=== PATIENT | male | born 1970 | race Caucasian/White ===

== ENCOUNTER 2022-04-21 06:30 | Outpatient (CLI) | payer BC, SELFPAY ==
--- OUTSIDE RECORDS SUMMARY | 2022-04-21 06:33 | XMS_ITS | Encounter Summary ---
:1970 Author Organization [facility] Address [address] [place] [address]. [place] [address] Care Team Providers Name Role Phone [facility], [facility] Primary Care Provider [phone] Reason for Visit Auth/Cert Specialty Diagnoses / Procedures Referred By Contact Refer red To Contact Gastroenterology Diagnoses Abnormal CT of the abdomen Abnormal CT of the abdomen [R93.5] Sh Endoscopy Procedures HC ENDOSCOPIC US EXAM, ESOPH HC UPPR GI ENDOSCOPY W/US FN BX HC UGI ENDOSCOPY W EUC W FNA/BIOPSY HC UGI ENDOSCOPY W EUS ESOPHAGOGASTRODUODENOSCOPY, WITH ENDOSCOPIC US [address] [place] [phone] Phone: Referral ID Status Reason Start Date Expiration Date Visits Requ ested Visits Authorized [id number] 1 1 Encounter Details Date Type Department Care Team Description 01/21/2021 Anesthesia Event M [facility] Ion Ley MD [facility] Endoscopy [facility] [address] ANESTHESIOLOGIS [place] [id number] [phone] [place] [id number] (Wo rk) Anesthesia Record Procedure Summary Procedure Name Responsible Anesthesia Start Anesthesia Stop Anesthesiologist Time Time ESOPHAGOGASTRODUODEN Ion Ley MD 01/21/21 1312 1 1353 OSCOPY, WITH FINE NEEDLE ASPIRATION BIOPSY, WITH ENDOSCOPIC ULTRASOUND GUIDANCE (Esophagus) Events Date Time Event Comment 01/21/2021 1240 1259 COPY CAMERA OPERATOR Ready for Procedure 1312 An Start 1312 An Start Data 1312 AN REASSESS I attest that I have identified and re-evaluated the patient immediately before the induction of anesthesia and I am satisfied that t he anesthetic plan is suitable for the patient's condition and procedure. The f irst vital signs recorded are pre- inducti on. Cheri Robertson APRN COPY CAMERA OPERATOR 1320 AN INCISION 1351 an stop data 1353 An Stop Electronically s igned by Cheri Robertson APRN CRNA on Jan 1:53 PM Name Total lidocaine 2% 100 mg ondansetron 2mg/mL 4 mg propofol (DIPRIVAN) injection 10 mg/mL vial 426.69 mg dexmedetomidine (PRECEDEX) in NS syringe (4 mcg/mL) 16 mcg No abx ordered pre-op 1 each midazolam 1 mg/mL 2 mg fentaNYL 50 mcg/mL 50 mcg LR 700 mL Agents Name NO HELIOX O2 N2O Air Exp Sevoflurane Exp Isoflurane Exp Desflurane Exp N2O Ins Sevoflurane Ins Isoflurane Ins Desflurane O2 Auxiliary Blood No blood administrations on file. Lines, Drains, and Airways Type Details Placement Removal Peripheral IV 01/21/21; 1231; 20 G; BD; 01/21/21 1231 by 01/21 1438 by Anterior, Distal, Right; Rafia Cantu, RN Lilian Reina, Lower forearm; RN Chlorhexidine documented in this encounter Social History Tobacco Use Types Packs/Day Years Used Date Smoking Tobacco: Former Smokeless Tobacco: Never Alcohol Use Standard Drinks/Week Comments Yes 0 (1 standard drink = 0.6 oz pure alcoho l) 6/week Sex Assigned at Date Recorded Not on file COVID-19 Exposure Response Date Recorded In the last month, have you been in contact with No / Unsure 01/21/2021 11:50 AM CDT someone who was confirmed or suspected to have Coronavirus / COVID-19? documented as of this encounter OR Notes Anesthesia Postprocedure Evaluation - Ashwin Poe MD - 01/21/2021 4:17 PM CDT Patient: Richard Alejandre Procedure(s): ESOPHAGOGASTRODUODENOSCOPY, WITH FINE NEEDLE ASPIRATION BIOPSY, WITH ENDOSCOPIC ULTRASOUND GUIDANCE Diagnosis:Abnormal CT of the abdomen [R93.5] Diagnosis Additional Information: No value filed. Anesthesia Type: MAC Note: Postop Pain Control: Uneventful Sign Out: Well controlled pain PONV: No Neuro/Psych: Uneventful Sign Out: Acceptable/Baseline neuro status Airway/Respiratory: Uneventful Sign Out: Acceptable/Baseline resp. status CV/Hemodynamics: Uneventful Sign Out: Acceptable CV status; No obvious hypovolemia; No obvious fluid overload Other NRE: NONE DID A NON-ROUTINE EVENT OCCUR? No Last vitals: Vitals Value Taken Time BP 138/101 01/21/21 1430 Temp Pulse 71 01/21/21 1433 Resp 12 01/21/21 1435 SpO2 96 % 01/21/21 1433 Vitals shown include unvalidated device data. Electronically Signed By: Ashwin Poe MD January 21, 2021 4:17 PM Anesthesia Preprocedure Evaluation - Ion Ley MD - 01/21/2021 12:29 PM CDT Anesthesia Pre-Procedure Evaluation Patient: Richard Alejandre : 1970 Preoperative Diagnosis: Abnormal CT of the abdomen [R93.5] Procedure : Procedure(s): ESOPHAGOGASTRODUODENOSCOPY, WITH ENDOSCOPIC US No past medical history on file. No past surgical history on file. No Known Allergies Social History Tobacco Use ??? Smoking status: Not on file Substance Use Topics ??? Alcohol use: Not on file Wt Readings from Last 1 Encounters: 01/21/21 86.2 kg (190 lb) Anesthesia Evaluation ROS/MED HX ENT/Pulmonary: (+) tobacco use, Past use, (-) sleep apnea Neurologic: Cardiovascular: METS/Exercise Tolerance: Hematologic: Musculoskeletal: GI/Hepatic: Comment: Stomach tumor; (+) GERD, Renal/Genitourinary: Endo: Psychiatric/Substance Use: Infectious Disease: Malignancy: Other: Physical Exam Airway Mallampati: II TM distance: > 3 FB Neck ROM: full Mouth opening: > 3 cm Respiratory Devices and Support Dental no notable dental history Cardiovascular cardiovascular exam normal Pulmonary pulmonary exam normal OUTSIDE LABS: CBC: No results found for: WBC, HGB, HCT, PLT BMP: No results found for: NA, POTASSIUM, CHLORIDE, CO2, BUN, CR, GLC COAGS: No results found for: PTT, INR, FIBR POC: No results found for: BGM, HCG, HCGS HEPATIC: No results found for: ALBUMIN, PROTTOTAL, ALT, AST, GGT, ALKPHOS, BILITOTAL, BILIDIRECT, CARMELINA OTHER: No results found for: PH, LACT, A1C, ROMAIN, PHOS, MAG, LIPASE, AMYLASE, TSH, T4, T3, CRP, SED Anesthesia Plan ASA Status: 2 NPO Status: NPO Appropriate Anesthesia Type: MAC. Consents Anesthesia Plan(s) and associated risks, benefits, and realistic alternatives discussed. Questions answered and patient/car sales representative(s) expressed understanding. - Discussed with: Patient Postoperative Care Comments: ION LEY MD documented in this encounter Miscellaneous Notes Anesthesia Care Transfer Note - Cheri Robertson APRN CRNA - 01/21/2021 1:54 PM CDT Patient: Richard Alejandre Procedure(s): ESOPHAGOGASTRODUODENOSCOPY, WITH FINE NEEDLE ASPIRATION BIOPSY, WITH ENDOSCOPIC ULTRASOUND GUIDANCE Diagnosis: Abnormal CT of the abdomen [R93.5] Diagnosis Additional Information: No value filed. Anesthesia Type: MAC Note: Oropharynx: oral airway in place Level of Consciousness: drowsy Oxygen Supplementation: nasal cannula Level of Supplemental Oxygen (L/min / FiO2): 3 Independent Airway: airway patency satisfactory and stable (with oral airway) Dentition: dentition unchanged Vital Signs Stable: post-procedure vital signs reviewed and stable Report to RN Given: handoff report given Patient transferred to: Phase II Handoff Report: Identifed the Patient, Identified the Reponsible Provider, Reviewed the pertinent medical history, Discussed the surgical course, Reviewed Intra-OP anesthesia mangement and issues during anesthesia, Set expectations for post-procedure period and Allowed opportunity for questions and acknowledgement of understanding Vitals: Vitals Value Taken Time BP Temp Pulse Resp SpO2 Electronically Signed By: Cheri Robertson APRN CRNA January 21, 2021 1:54 PM documented in this encounter Plan of Treatment Not on filedocumented as of this encounter Visit Diagnoses Not on filedocumented in this encounter Administered Medications Inactive Administered Medications - up to 3 most recent administrations Medication Order MAR Action Action Date Dose Rate Site dexmedetomidine (PRECEDEX) in NS Given 01/21/2021 1:45 PM CDT 8 mcg syringe (4 mcg/mL) Intravenous, PRN, Starting on Wed01/21/21 at 1321, Anesthesia Intra-op Given 01/21/2021 1:21 PM CDT 8 mcg fentaNYL (PF) (SUBLIMAZE) injection Given 01/21/2021 1:12 PM CDT 50 mcg Intravenous, PRN, Administer over 3-5 Minutes, Starting on Wed01/21/21 at 1312, Anesthesia Intra-op lactated ringers infusion New Bag 01/21/2021 1:13 PM CDT Intravenous, CONTINUOUS PRN, Anesthesia Intra-op, Starting on Wed01/21/21 at 1313, Until Wed01/21/21 at 1353 lidocaine 2% injection (MDV) Given 01/21/2021 1:19 PM CDT 40 mg Intravenous, PRN, Starting on Wed01/21/21 at 1313, Anesthesia Intra-op Given 01/21/2021 1:13 PM CDT 60 mg midazolam (VERSED) injection Given 01/21/2021 1:12 PM CDT 2 mg Intravenous, Administer over 2 Minutes, PRN, Starting on Wed01/21/21 at 1312, Anesthesia Intra-op No abx ordered pre-op Given 01/21/2021 1:12 PM CDT 1 each PRN, Starting on Wed01/21/21 at 1312, Until Wed01/21/21 at 1353, Anesthesia Intra-op ondansetron (ZOFRAN) injection Given 01/21/2021 1:36 PM CDT 4 mg Intravenous, PRN, Administer over 2-5 Minutes, Starting on Wed01/21/21 at 1336, Anesthesia Intra-op propofol (DIPRIVAN) Rate/Dose Change 01/21/2021 1:27 150 mcg/kg/min 7 7.58 mL/hr injection 10 mg/mL vial PM CDT Intravenous, CONTINUOUS PRN, Starting on Wed01/21/21 at 1315, Anesthesia Intra-op New Bag 01/21/2021 1:15 PM CDT 175 mcg/kg/min 90.51 mL/hr documented in this encounter Care Teams Fire Alarm Operator Relationship Specialty Start Date End Date Clinic, [facility]o Buitrago PCP - General 01/15/[address] [place] [id number] documented as of this encounter
--- OUTSIDE RECORDS SUMMARY | 2022-04-21 06:33 | XMS_ITS | Encounter Summary ---
:1970 Author Organization [facility] Address [address] [place] [address] Care Team Providers Name Role Phone Unavailable Primary Care Provider Unavailable Reason for Visit Reason Onset Date Comments Outpatient COVID-19 Testing 05/19/2021 Encounter Details Date Type Department Care Team Description 05/19/2021 External Outreach Department of [facility] in [place] (Suspected) Exposure [place], [place] [address] To COVID-19 (Primary [address] [place], [place] Dx) [place] [id number] Social History Tobacco Use Types Packs/Day Years Used Date Smoking Tobacco: Never Assessed Sex Assigned at Date Recorded Not on file documented as of this encounter Progress Notes Kimber Perez R.N. - 05/19/2021 3:07 PM CST Encounter created for COVID-19 screening. UTER SYSTEMS ARCHITECT documented in this encounter Miscellaneous Notes Result Encounter Note - Talisha Galloway R.N. - 05/20/2021 10:12 AM COMPUTER SYSTEMS ARCHITECT Your patient has tested positive for SARS-CoV-2, the virus that causes COVID-19. IMPORTANT: Please update the patient's problem list and medication list to ensure an accurate and timely evaluation for COVID-19 treatments, including various medications and Remote Patient Monitoring (RPM). If eligible for COVID-19 treatments or RPM, your patient will be contacted by a designated team of nurses to coordinate the care. The [facility] ([facility]) sends general guidance about COVID-19 to all patients by letter or portal, except when a patient is hospitalized or resides in a halfway. The [facility] will also call all adult patients at highest risk for severe complications of COVID-19 andall who require an nursing services manager. Any patient with a MASS score 1 or greater or a COVID-19 score 1 or greater may be at higher risk ofsevere disease. These patients will follow up directly with primary care. The primary care team willdecide if the patient needs a phone call or a follow up portal message to assess symptom severity, provide individualized guidance on symptom monitoring or symptom management, or to reinforce when to se ek care. [facility] encourages patients to follow up with their PCP with questions, worsening symptoms, or for symptom management. For questions, contact the [facility] ([facility]): Pager: [phone] In basket: P RST/[facility] COVID-19 POSITIVE Covid Care e-consult Components of the Monoclonal Antibody Selection Score (MASS) Compromised Immune System/Transplant = 4 points Chronic Kidney Disease on Dialysis = 4 points Age greater than or equal to 55 and chronic pulmonary disease = 3 points Age greater than or equal to 65 = 2 points Age greater than or equal to = 2 points Diabetes = 2 points Age greater than or equal to 55 AND cardiovascular disease = 2 points Age greater than or equal to 55 and hypertension = 1 point NOTE: At the time of testing, patients are instructed to obtain the result by calling the [employer] result line or by checking their online services account. UTER SYSTEMS ARCHITECT documented in this encounter Plan of Treatment Not on filedocumented as of this encounter Procedures Procedure Name Priority Date/Time Associated Diagnosis Comme nts SARS CORONAVIRUS-2 Routine 05/19/2021 3:53 PM Contact With And Results for this RNA, V COMPUTER SYSTEMS ARCHITECT (Suspected) Exposure procedu re are in To COVID-19 the results section. documented in this encounter Results (ABNORMAL) SARS Coronavirus-2 RNA, V Asymptomatic (05/19/2021 3:53 PM COMPUTER SYSTEMS ARCHITECT) [facility] gist Method Time Signature SARS-CoV-2 Swab, 05/20/2021 MKTO Specimen Nasopharynx 8:52 AM COMPUTER SYSTEMS ARCHITECT Source SARS CoV-2 Detected (A) Undetected 05/20/2021 MKTO RNA, TMA 8:52 AM COMPUTER SYSTEMS ARCHITECT Comment: SARS-CoV-2 RNA present. ----ADDITIONAL INFORMATION---- This molecular amplification test was pe rformed using the Aptima SARS-CoV-2 assay ([employer] on the [employer] tem under emergency use authorization (EUA) by the U.S. Food and Drug Administ ration. Fact sheets for this EUA assay can be fo und at the following links: For Healthcare Providers: https://www.[employer]VI[employer] a.gov/media/273328/download For Patients: https://www.fda.gov/media/ 888122/download Specimen Anatomical Collection Method Collection Time Receive d Time (Source) Location / / Volume Laterality Varies 05/19/2021 3:53 PM 7:16 (Nasopharynx) COMPUTER SYSTEMS ARCHITECT PM COMPUTER SYSTEMS ARCHITECT Hakeem Dennis D.O. LAB MICROBIOLOGY - GENERAL O PI[place]RO[place] Performing Organization Address City/State/ZIP Code Phon e Number [facility]- [address] [place] [address] [place] [address] [address] documented in this encounter Visit Diagnoses Diagnosis Contact With And (Suspected) Exposure To COVID-19 - Primary documented in this encounter Additional Health Concerns Infection Onset Date Last Indicated Resolved Time COVID19 Pending 05/19/2021 05/19/2021 05/20/2021 8:52 AM COMPUTER SYSTEMS ARCHITECT documented as of this encounter
--- OUTSIDE RECORDS SUMMARY | 2022-04-21 06:33 | XMS_ITS | Continuity of Care Document ---
:1970 Author Organization [facility] Address [address] [address] [place] [address] Phone Care Team Providers Name Role Phone Kristen Tamayo MD Unavailable Unavailable Procedures Procedure Date Ugi Endo; W/us Guid Asp/bx Advance Directives Directive Yes / No Effective Date File Name No Information Encounters Encounter Practice Location Reason(s) Diagnoses Date Provider Provide rs Description For Visit Copied on Encounter DEBRA R[facility]AR[facility] stromal tumor MD Frank ISABEL, [place] (GIST) of stomach [address] [address], [facility] , [place], [place], [place] [id number], [address], [place] tel: [place], [place], [id number] , [place]. tel: [phone] DEBRA [place] No Information [facility] [place] Provider: Frank [place], [facility] [address] [place] [address], Huang [place], [address] [facility] , [place], [place], [address] [place] [id number], [address], [place] [address], [place] tel: [place], [place], [place], [place], [phone] , [place]. . tel: tel: [phone] DEBRA Guzman No Information [facility], [address] [address], [place], [place], [place], [place] [id number], [address], [place] tel:[phone] [place], [id number] , [place]. tel: [phone] Family History Family Member Type Diagnosis Age At Onset No Information Immunizations Vaccine Date Status Comments tetanus and diphtheria toxoids, administered Note: MIIC bi-directional adsorbed, preservative free, for interface ; Source: Other adult use (5 Lf of tetanus Von try toxoid and 2 Lf of diphtheria toxoid) tetanus toxoid, reduced administered Note: AR IC bi-directional diphtheria toxoid, and acellular interface ; Source: Other pertussis vaccine, adsorbed Dariana stry Payers Payer name Insurance type Covered constitution party ID Authorization(s ) No Information Social History Type Description Quantity Date Captured Comments Alcohol Use Details Unknown Caffeine Use Details Unknown Tobacco Use Status No Information Smoking Status No Information Sex Male Chief Complaint And Reason For Visit No Information Reason For Referral Reason For Referral No Information Plan Of Treatment Date Type Action Status Referral Ordered: ordered referred to Jonathan Britton MD Gene ral surgery: ANW History Of Present Illness Encounter Date Complaint History Of Present I llness No Information Functional Status Date Functional Assessment No Information Instructions Date Instruction Additional Informati on No Information Assessments Type Assessment Date assessment Gastrointestinal stromal tumor (GIST) of stomach Patient Care Teams Name Effective Dates (start - stop) Status French weinberg No Information
--- OUTSIDE RECORDS SUMMARY | 2022-04-21 06:33 | XMS_ITS | Clinical Summary ---
:1970 Author Organization [facility] [place] [address] Care Team Providers Name Role Phone Nadira Boyd Primary Care Provider [phone] Elena Messer RN Unavailable Jeimy Diehl MD Unavailable Allergies No known active allergies Medications Medication Sig Dispensed Refills Start Date End Date Status [facility] [phone] Plantar 1 Each 0 08/26/2021 Active equipment fasciitis night (DME)Indications: splint, large Chronic heel pain, right, Plantar fasciitis docusate (Colace) 100 Take 1 Capsule 20 Capsule 0 03/20/2022 Active mg (100 mg) by mouth capsuleIndications: two times daily. Femoroacetabular impingement of right hip indomethacin (INDOCIN Take 1 Capsule (75 4 Capsule 0 2 Active LA) 75 mg mg) by mouth once Sustained-Release daily with a meal. capsuleIndications: Start medication Femoroacetabular on post operative impingement of right day 1. hip naproxen Take 1 Tablet (500 52 Tablet 0 03/20/2022 Active (EC-NAPROSYN) 500 mg mg) by mouth two EC tabletIndications: times daily with Femoroacetabular meals. Take for 26 impingement of right days. Start hip medication post operative day 5 once indocin/indomethac in prescription is complete ondansetron (ZOFRAN Place 1 Tablet (4 20 Tablet 0 03/20/2022 Active ODT) 4 mg mg) on the tongue disintegrating every 6 hours if tabletIndications: needed for Femoroacetabular Nausea/Vomiting. impingement of right hip omeprazole (PRILOSEC) Take 1 Capsule (40 4 Capsule 0 2 Active 40 mg Delayed-Release mg) by mouth once capsuleIndications: daily before a Femoroacetabular meal. Start impingement of right medication on post hip operative day 1. oxyCODONE-acetaminoph Take 1-2 Tablets 20 Tablet 0 03/20/2022 Active en (PERCOCET) 5-325 by mouth every 6 mg per hours if needed tabletIndications: for Pain. Max Femoroacetabular acetaminophen impingement of right dose: 4000mg in 24 hip hrs. hydrOXYzine pamoate Take 1 Capsule (25 20 Capsule 0 03/20/2022 Active (VISTARIL) 25 mg mg) by mouth 3 capsuleIndications: times daily if Femoroacetabular needed (muscle impingement of right spasms). hip CrutchIndications: For home use. 2 Each 0 03/20/2022 Active Femoroacetabular impingement of right hip aspirin (ECOTRIN) 81 Take 1 Tablet (81 28 Tablet 0 03/20/2022 mg enteric coated mg) by mouth two 2 tabletIndications: times daily with Femoroacetabular meals for 14 days. 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 Colby Briceno/) 03/31/2022 Travel 03/20/2022 Anesthesia Event Rony Colón MD Laberge, Thomas Patrick, MD 03/20/2022 Surgery Sanjeev Walker Right hip arthr oscopic MD Denys labral repair, subspine decompression, femoroplasty 03/20/2022 Hospital Encounter Sanjeev Walker Femoroace tabular MD Denys impingement of right hip (Primary Dx) 03/19/2022 Travel 03/18/2022 Medical Messaging Kel Vaz Left Elb ow MD Jesus 03/17/2022 Telephone Sanjeev Walker Questions MD Denys 03/16/2022 Nurse/Clinic Staff Testing ( Pre-procedure Only COVID test) 03/16/2022 Travel 03/12/2022 Office Visit Clifton Myers Elbow Pain/pr oblem (GIACOMO Valdovinos MD (new to you) - left elbow pain) 03/12/2022 Telephone Sanjeev Walker MD 03/12/2022 Travel 03/06/2022 Preop Visit Nadira Boyd Pre-Op Exam (03/20/22) MAAME Whitley 03/06/2022 Travel 02/13/2022 Orders Only Sanjeev Walker <No scans attac hed> MD Denys 02/12/2022 Office Visit Sanjeev Walker Hip Pain/proble m MD Denys 02/12/2022 Travel 01/28/2022 Procedure Only Kel Vaz Procedure ( Ultrasound MD Jesus guided injectio n for... 01/28/2022 Travel from Last 3 Months Immunizations Name Administration Dates Next Due Td, Preservative Free (age >= 7 Years) 05/30/2019 Tdap 01/16/2009 Family History Medical History Relation Name Comments Heart attack Father Heart Disease Maternal Grandfather Good Health Mother Arthritis Sister 1 back surgery x 4 Arthritis Sister 2 neck surgery Relation Name Status Comments Father (Age 63) Maternal Grandfather Mother Sister 1 Sister 2 Social History Tobacco Use Types Packs/Day Years Used Date Smoking Tobacco: Former Cigarettes Quit : 2003 Smokeless Tobacco: Never Tobacco Cessation: Counseling Given: Yes Alcohol Use Standard Drinks/Week Comments Yes 6 (1 standard drink = 0.6 oz pure alcoho l) Sex Assigned at Date Recorded Not on file COVID-19 Exposure Response Date Recorded In the last 10 days, have you been in contact with No / Unsu re 03/31/2022 8:59 AM ORDER CLERK someone who was confirmed or suspected to have Coronavirus/COVID-19? Obstetrics History Last Filed Vital Signs Vital Sign Reading Time Taken Comments Blood Pressure 125/72 03/20/2022 3:30 PM ORDER CLERK Pulse 62 03/20/2022 3:30 PM ORDER CLERK Temperature 36.2 ??C (97.2 ??F) 03/20/2022 2:24 PM ORDER CLERK Respiratory Rate 16 03/20/2022 3:30 PM ORDER CLERK Oxygen Saturation 98% 03/20/2022 3:30 PM ORDER CLERK Inhaled Oxygen Concentration - - Weight 88.4 kg (194 lb 14.2 oz) 03/20/2022 8:42 AM ORDER CLERK Height 180.3 cm (5' 11) 03/20/2022 8:42 AM ORDER CLERK Body Mass Index 27.18 03/20/2022 8:42 AM ORDER CLERK Plan of Treatment Upcoming Encounters Date Type Specialty Care Team Description 04/21/2022 Procedure Only Kel Vaz MD [address] [place], [place] [address] (Wo rk) 04/28/2022 Appointment 04/28/2022 Office Visit Jeimy Diehl MD [address] [facility] [address] [place], [place] [id number] (Wo rk) 05/11/2022 Office Visit Sanjeev Walker MD [address] [facility] [address] [place], [place] [address] (Wo rk) Health Maintenance Due Date Last Done Comments COVID-19 vaccine series (#1) 05/15/1969 HIV for age 15-65 11/13/1983 Zoster (shingles) series for age 0711/12/2018 50+ (1 of 2) Depression screening for age 12+ 05/30/2020 05/30/2019, Fecal testing non-DNA 03/07/2021 03/07/2020 (FIT,FOBT,iFOBT) for age 45-75 Influenza for age 50-64 01/08/2022 BMI (ht and wt on same day) for 03/06/2023 03/06/2022, 10/08, age 18+ 09/09/2021, Additional history exists Lipids for age 45-75 09/09/2026 09/09/2021, 05/30/2019, 11/20/2016 Colonoscopy through age 75 07/01/2028 07/01/2021, Tetanus booster 05/30/2029 05/30/2019, 01/16/2009 Tdap Completed 01/16/2009 Hepatitis C screening for age Completed 11/18/2020 18-79 Medical Devices Implanted Type Area Pvc Monitor Device Shelf Model / Identifier Expiration Date Ser ial / Lot Ancr Sut [place] Tt - [id number] Right: [place] 09/16/2024 [id number] / Implanted: Qty: 5 on 03/20/2022 by Sanjeev Walker MD at [facility] Hip Orthopaedics / [id number] Procedures Procedure Name Priority Date/Time Associated Comments Diagnosis XR C-ARM EQUAL OR Routine 03/20/2022 1:01 PM Resu lts for this GREATER 2 HR ORDER CLERK procedure are i n the results section. ENDOTRACHEAL TUBE Routine 03/20/2022 11:20 Result s for this AM ORDER CLERK procedure are i n the results section. ENDOTRACHEAL TUBE Routine 03/20/2022 11:20 Result s for this AM ORDER CLERK procedure are i n the results section. ENDOTRACHEAL TUBE Routine 03/20/2022 11:20 Result s for this AM ORDER CLERK procedure are i n the results section. ENDOTRACHEAL TUBE Routine 03/20/2022 11:20 Result s for this AM ORDER CLERK procedure are i n the results section. ARTHROSCOPIC HIP Tier 4 03/20/2022 10:20 Tear of right AM ORDER CLERK acetabular labrum, initial encounter Case Notes SWING 150 MIN 1030 T/F CASES IN MAIN OR, TREY DIAMONDAN, tricia pivot slingshot, pivot nanopass, pivot nanota ck 1.4 (Company: 5.5mm Carly Bur XL, 4.0mm Aggressive Plus XL, x 2 Shaver handpiec es, CrossFire2 console) Special Needs 5' 11.5 90.4 kg BMI 27.43 SCAN-CARDIAC STRIP 03/20/2022 12:00 Resul ts for this AM ORDER CLERK procedure are i n the results section. COVID 19 Routine 03/16/2022 9:25 AM Encounter for Results for this ORDER CLERK pre-operative procedure are in laboratory testing the resul ts section. COVID 19 COLLECTION Routine 03/16/2022 9:25 AM Encounter for R esults for this ORDER CLERK pre-operative procedure are in laboratory testing the resul ts section. HEMOGLOBIN Routine 03/06/2022 2:16 PM Preop general Results for this CDT physical exam procedure are in Chronic right hip the result s pain section. Articular cartilage disorder of right hip BEDSIDE US STUDY Routine 01/28/2022 11:52 Medial epicondylitis Results for this ARCHIVE AM CDT of left elbow procedure are in the results section. from Last 3 Months Results XR C-ARM EQUAL OR GREATER 2 HR (03/20/2022 1:01 PM ORDER CLERK) Anatomical Region Laterality Modality Computed Radiography Specimen (Source) Anatomical Collection Method Collection Time Re ceived Time Location / / Volume Laterality 03/20/2022 1:01 PM ORDER CLERK Narrative 03/20/2022 1:12 PM ORDER CLERK For Patients: As a result of the Cures Act, medical imaging exams and procedure reports are released immediately into your electronic medical record. You may view this report before your re ferring provider. If you have questions, please contact your health care provider. EXAM: XR C-ARM EQUAL OR GREATER 2 HR LOCATION: [facility] DATE/TIME: 03/20/2022 1:01 PM INDICATION: free text)->intraoperative. Pain COMPARISON: 11/20/2021 TECHNIQUE: Intraoperative fluoroscopy pe rformed during the patient's procedure. FLUOROSCOPIC TIME: 0.5 minutes ?? NUMBER OF IMAGES: 6. FINDINGS: Fluoroscopy over the right fem ur with instrumentation at the acetabular margin. Procedure Note Roland Hall MD - 03/20/2022 For Patients: As a result of the Cures Act, medical imaging exams and procedure reports are released immediately into your electronic medical record. You may view this report before your referring provider. If you have questions, please contact [facility] health care provider. EXAM: XR C-ARM EQUAL OR GREATER 2 HR LOCATION: [facility] DATE/TIME: 03/20/2022 1:01 PM INDICATION: free text)->intraoperative. Pain COMPARISON: 11/20/2021 TECHNIQUE: Intraoperative fluoroscopy pe rformed during the patient's procedure. FLUOROSCOPIC TIME: 0.5 minutes NUMBER OF IMAGES: 6. FINDINGS: Fluoroscopy over the right fem ur with instrumentation at the acetabular margin. Sanjeev Walker MD FLUOROSCOPY HCHG TUBE PR1, HCHG INSTRUMENT DISP PR10, HCHG STYLET PR1, HCHG MOUTHPIECE PR1 (03/20/2022 11:20 AM ORDER CLERK) Narrative Rony Colón MD - 03/20/2022 11:20 AM ORDER CLERK Rony Colón MD ? 03/20/2022 11:22 AM Procedure: ETT Patient location during procedure: OR ETT Properties Mask Ventilation: oral airway Final Technique: video laryngoscopy Type: straight Location: oral Cuffed: yes Tube Size: 8.0 mm Stylet: yes Laryngoscope Blade: Glidescope Blade Size: 3 Cormack-Lehane Grade View: 1 Insertion Attempts: 1 Placement Verification: auscultation, en d tidal CO2 and symmetrical chest wall movement Secured at: 22 Measured From: lips Tooth guard used and removed: yes Bite Block: oral airway Difficulty: 0 (not difficult) Notes: Used glidescope due to patient po sition on bed Electronically signed by Thu Colón MD ? Rony Colón MD ANESTHESIA PX NOTE ORDERABLE S SCAN-CARDIAC STRIP (03/20/2022 12:00 AM ORDER CLERK) Narrative 03/20/2022 12:00 AM ORDER CLERK This result has an attachment that is no t available. Ordered by an unspecified provider. Other Clinical Staff OTHER COVID 19 (03/16/2022 9:25 AM ORDER CLERK) Analysis Performed At Path logist Time Signature COVID 19 Negative Negative 03/17/2022 [facility] 12:19 PM ORDER CLERK LABORATORY[facility] Specimen Anatomical Location / Collection Method Collection Rudy e Received Time (Source) Laterality / Volume Other SPECIMEN FROM Non-Blood / 03/16/2022 9:25 03/17/2022 6:09 NASOPHARYNGEAL Unknown AM ORDER CLERK AM ORDER CLERK STRUCTURE / Unknown Narrative [facility] LABORATORY-CENTRAL LABORAT ORY - 03/17/2022 12:19 PM ORDER CLERK All PCR tests are subject to false negative result due to variability in viral load and collection te chnique. A negative result does not rule out a SARS-CoV-2 infection. Clinical correlation required. This test has been authorized by FDA und er an Emergency Use Authorization (EUA). This test is only authorized for the duration of time the declaration that circumstances exist justifying the authorizati on of the emergency use of in vitro diag nostic tests for detection of SARS-CoV-2 virus and/or diagnosis of COVID-19 infection under section 564(b)(1) of the Act, 21 U.S.C. 360bbb-3(b) (1), unless the authorization is terminated or revoked sooner. Nadira ISABEL MICROBIOLOGY Performing Organization Address City/State/ZIP Code Phon e Number [facility] [address] [place] [address] LABORATORY-CENTRAL 2000 LABORATORY COVID 19 COLLECTION (03/16/2022 9:25 AM ORDER CLERK) [facility] gist Method Time Signature TESTING [facility] 03/17/2022 [facility] LABORATORY Laboratory 6:09 AM ORDER CLERK LABORATORY-CE NTRAL LABORATORY Comment: Specimen submitted to [facility] Laboratory for testing. Specimen Anatomical Location / Collection Method Collection Rudy e Received Time (Source) Laterality / Volume Other SPECIMEN FROM Non-Blood / 03/16/2022 9:25 03/16/2022 9:59 NASOPHARYNGEAL Unknown AM ORDER CLERK AM ORDER CLERK STRUCTURE / Unknown Nadira ISABEL SEND OUTS Performing Organization Address City/State/ZIP Code Phon e Number [facility] [address] [place] [address] LABORATORY-CENTRAL 2000 LABORATORY HEMOGLOBIN (03/06/2022 2:16 PM CDT) P athologist Signature HEMOGLOBIN 14.7 13.5 - 17.5 03/06/2022 [facility] g/dL 2:23 PM CDT [facility] MCV 85 80 - 100 fL 03/06/2022 [facility] 2:23 PM CDT [facility] Specimen Anatomical Collection Method / Collection Time Recei minoo Time (Source) Location / Volume Laterality Blood BLOOD SPECIMEN / Venipuncture / 03/06/2022 2:16 2021 2:18 Unknown Unknown PM CDT PM CDT Nadira ISABEL HEMATOLOGY Performing Organization Address City/State/ZIP Code Phon e Number [facility] [address] [place] [address] BEDSIDE US STUDY ARCHIVE (01/28/2022 11:52 AM CDT) Specimen (Source) Anatomical Location Collection Method / Collectio n Time Received Time / Laterality Volume Narrative Rosaura Hensley - 01/28/2022 11:52 AM CDT The patient was seen for ultrasound guided injection by Dr. Kel Vaz. Ultrasound was not used for diagnostic p urposes, but to guide the needle placement and document the position of the injection. ?? See patient's EPIC encounter for the det ail of the procedure; see TALHA for saved images of the injection. Kel Vaz MD PROCEDURE ORD from Last 3 Months Insurance Payer Benefit Plan / Subscriber ID Effective Phone Address T ype Group Dates WC WORKERS WC WORKERS COMP [id number]-Prese [phone] [address] [id number] [address] [place] [address] WC WORKERS WC WORKERS COMP [id number] 2015-Pre [id number] [place] [address] BLUE CROSS BLUE CROSS OF [id number] 2020-Pres [address] [place] ent [id number] [place] [address] [address] (Home) [address] [address] Richard Alejandre Workers Comp Self 1970 [address] (Home) [address] [address] Richard Alejandre Workers Comp Self 1970 [address] (Home) [address] [facility] Employer ATTN [employer] (Home) [facility]HELFORMERLY [facility]/R [address] [place] [address] Richard Alejandre Retail Self 1970 [address] (Home) [address] [address] Advance Directives Latest Code Status on File Code Status Date Activated Date Inactivated Comments Full Code 03/20/2022 7:54 AM 03/20/2022 6:02 PM Question Answer Comments Code Status Discussion: Reviewed Preferences Code Status History Code Status Date Activated Date Inactivated Comments Full Code 03/06/2021 5:50 AM 03/08/2021 5:16 PM Question Answer Comments Code Status Discussion: Not Discussed Care Teams Trial Lawyer Relationship Specialty Start Date End Date Nadira Boyd PA PCP - General Physician Director Trial 04/27/17 [address] [place] [address] Elena Messer, YOUNG Nurse Navigator Oncology 02/01/[address] [place] [address] Jeimy Diehl MD General Surgery Surgery - General 02/01/[address] [place] [address]
--- OUTSIDE RECORDS SUMMARY | 2022-04-21 06:33 | XMS_ITS | Encounter Summary ---
:1970 Author Organization [place] Address [address] [place] [address] Care Team Providers Name Role Phone [facility] Primary Care Provider [phone] Encounter Details Date Type Department Care Team Description 01/21/2021 Travel Social History Tobacco Use Types Packs/Day Years [...] / COVID-19? documented as of this encounter Plan of Treatment Not on filedocumented as of this encounter Visit Diagnoses Not on filedocumented in this encounter Care Teams Contract Technician Relationship Specialty Start Date End Date [facility] PCP - General 01/15/[address] [place] [address] documented as of this encounter
--- OUTSIDE RECORDS SUMMARY | 2022-04-21 06:33 | XMS_ITS | Clinical Summary ---
:1970 Author Organization [facility] Address [address] [place] [address] Care Team Providers Name Role Phone Unavailable Primary Care Provider Unavailable Source Comments Patient records contain information from all sites at [facility]. For routine questions regarding patient records, call [phone] during business hours, M-F 8:00 AM - 5:00 PM Central Time. Record requests for emergency care only can be directed to [phone] at any time.[facility] Social History Tobacco Use Types Packs/Day Years Used Date Smoking Tobacco: Never Assessed Sex Assigned at Date Recorded Not on file Plan of Treatment Health Maintenance Due Date Last Done Comments CT Colonography 1970 Cologuard 1970 Colonoscopy 1970 Colorectal Cancer Screening 1970 FIT 1970 HIV Screening 1970 Hepatitis B Vaccines (1 of 3 1970 - 3-dose series) Hepatitis C Screening 1970 COVID-19 Vaccine (#1) 05/15/1969 Zoster Vaccines (1 of 2) 2018 Depression Screening (Annual 05/10/2021 PHQ-2) Influenza Vaccine (#1) 2022 Fasting Glucose for Diabetes 03/08/2024 03/08/2021, Screening 03/07/2021, 05/30/2019 Lipid (Cholesterol) Screening 05/30/2024 05/30/2019 DTaP,Tdap,and Td Vaccines (3 05/30/2029 05/30/2019, - Td or Tdap) 01/16/2009 Pneumococcal vaccine (0-64 Aged Out No lo nger eligible based years) on patient's age to complete this to [facility] Insurance Payer Benefit Plan Subscriber ID Effective Phone Address Typ e / Group Dates TITO FRANCIS [id number] 2017-Adelaida [phone] [place] [address] 31 [address] y (Home) [place] [address]
--- OUTSIDE RECORDS SUMMARY | 2022-04-21 06:33 | XMS_ITS | Encounter Summary ---
:1970 Author Organization [facility] Address [address] [place] [address] Care Team Providers Name Role Phone Unavailable Primary Care Provider Unavailable Reason for Visit Reason Comments COVID Inquiry Encounter Details Date Type Department Care Team Description 05/19/2021 Clinical Communication Central Appointment RikyedMARVA jeffries Office in [address] [address] Social History Tobacco Use Types Packs/Day Years Used Date Smoking Tobacco: Never Assessed Sex Assigned at Date Recorded Not on file documented as of this encounter Miscellaneous Notes Telephone Encounter - Teresa Howell Kentrell - 05/19/2021 3:04 PM CST What is the purpose of the call?: Requesting Testing Only Request Testing In the past 14 days are any of the following symptoms new to you and not related to an existing health condition?: No symptoms noted In the past 14 days have you had close contact* with a person who has a LABORATORY CONFIRMED case ofCOVID-19?: Yes exposure noted. [place] patient, instruct to quarantine, testing indicated (End Screening) Plan: Endpoint recommendation: Testing indicated, advised to be swabbed for COVID-19 Only , sent to [facility] located at [address] [place] [address] ([facility]). An appointment is required for testing, please call [phone] Wednesday-Wednesday 7am to 6pm and Wednesday & Wednesday 9am to 4pm to schedule an appointment. Testing hours are 8am - 4:30pm daily. You can also schedule via your Patient Online Services account., Please avoid using public transportation per CDC recommendation. If you do not have personal transportation please self- quarantine until a personal transportation option is available. *Reminder if sending patient for testing in [facility] or [facility], route encounter to the correct testing pool. ITY ASSURANCE PRACTICE MANAGER documented in this encounter Plan of Treatment Not on filedocumented as of this encounter Visit Diagnoses Not on filedocumented in this encounter
--- OUTSIDE RECORDS SUMMARY | 2022-04-21 06:33 | XMS_ITS | Encounter Summary ---
:1970 Author Organization [facility] Address [address] [place] [address]. [place] [address] Care Team Providers Name Role Phone [facility], [facility] Primary Care Provider [phone] Reason for Visit Auth/Cert Specialty Diagnoses / Procedures Referred By Contact Refer red To Contact Gastroenterology Diagnoses Abnormal CT of the abdomen Abnormal CT of the abdomen [R93.5] Sh Endoscopy Procedures HC ENDOSCOPIC US EXAM, ESOPH HC UPPR GI ENDOSCOPY W/US FN BX HC UGI ENDOSCOPY W EUC W FNA/BIOPSY HC UGI ENDOSCOPY W EUS ESOPHAGOGASTRODUODENOSCOPY, WITH ENDOSCOPIC US [address] [place] [phone] Phone: Referral ID Status Reason Start Date Expiration Date Visits Requ ested Visits Authorized [id number] 1 1 Encounter Details Date Type Department Care Team Description 01/21/2021 Hospital Encounter [facility] Marleny Tamayo y [facility] Endoscopy MD Anastasiya [address] OR GASTROENTEROLOGY [place] [id number] [address] [facility] [phone] [place] [id number] (Wo rk) Social History Tobacco Use Types Packs/Day Years [...] / COVID-19? documented as of this encounter Last Filed Vital Signs Vital Sign Reading Time Taken Comments Blood Pressure 138/101 01/21/2021 2:30 PM CDT Pulse 64 01/21/2021 2:30 PM CDT Temperature 36.2 ??C (97.2 ??F) 01/21/2021 12:27 PM CDT Respiratory Rate 18 01/21/2021 2:30 PM CDT Oxygen Saturation 99% 01/21/2021 2:30 PM CDT Inhaled Oxygen Concentration - - Weight 86.2 kg (190 lb) 01/21/2021 12:27 PM CDT Height 180.3 cm (5' 11) 01/21/2021 12:27 PM CDT Body Mass Index 26.5 01/21/2021 12:27 PM CDT documented in this encounter Plan of Treatment Not on filedocumented as of this encounter Procedures Procedure Name Priority Date/Time Associated Comments Diagnosis FINE NEEDLE ASPIRATE STAT 01/21/2021 1:23 PM R esults for this CDT procedure are i n the results section. ESOPHAGOGASTRODUODEN 01/21/2021 1:[address] of the OSCOPY, WITH FINE CDT abdomen NEEDLE ASPIRATION BIOPSY, WITH ENDOSCOPIC ULTRASOUND GUIDANCE UPPER EUS Routine 01/21/2021 1:08 PM Results f or this CDT procedure are i n the results section. documented in this encounter Results (ABNORMAL) Fine Needle Aspirate Other (01/21/2021 1:23 PM CDT) Component Value Ref Test Analysis Performed At [facility] gist Range Method Time Signature Final Specimen A 01/27/2021 RH Electron ically Diagnosis 3:04 PM LABORATORY signed by Interpretation: Consistent with gastrointestinal stromal tumor (GIST) (Please see microscopic description) CDT Nahomi Dougherty MD on 01/27/2021 at 3:04 PM Atypical Adequacy: Satisfactory for evaluation Rapid Onsite FNA Performance: 01/27/2021 [facility] Evaluation Fine needle aspiration was n ot performed by [facility]ology staff. 3:04 PM LABORATORY CDT Aspirate immediate study/adequacy: BJORN Chavez MONNA J, MD, atte st that I immediately examined smears while the procedure was underway and determined or confirmed the adequacy of the specimens. It is of note that the final assessment and report may be performed and signed by a different pathologist. Onsite adequacy/interpretation: A: adequate Gross A. Other, gastric submucosal mass, Fine Needle Aspirate: 01/27/2021 [facility] Description Received are 2 fixed slides, processed for H&E stain, 2 air dried slides, processed for Diff Quik stain, and material in formalin, processed for one hematoxylin stained cell block. 3:04 PM LABOR ATORY CDT Microscopic The specimen shows 01/27/2021 RH Description scant spindle cells 3:04 PM LABORATO RY with no significant CDT atypia. Suspicion for a gastrointestinal stromal tumor is noted. Immunostains are performed and show that the lesional cells are strongly positive for CD117, DOG-1, focally positive for Caldesmon, and negative for desmin and S100. Immunostains confirm a gastrointestinal stromal tumor. Definitive high risk features are not present, however sampling is limited. Intradepartmental consultation is obtained Abnormal Yes (A) No 01/27/2021 RH Result? 3:04 PM LABORATORY CDT Performing The technical 01/27/2021 [facility] Labs component of this 3:04 PM LABORATORY testing was CDT completed at [facility] Specimen (Source) Anatomical Collection Method Collection Time Re ceived Time Location / / Volume Laterality Fine Needle TOPOGRAPHY UNKNOWN 01/21/2021 1:23 2020 7:46 Aspiration / Unknown PM CDT AM CDT Kristen GUARDADO - [place] MICHELLE Performing Organization Address City/State/ZIP Code [place] [address] [facility] [address] (1st floor, no room number) [facility] [address] [place] [address] , [facility] UPPER EUS (01/21/2021 1:08 PM CDT) [facility] gist Method Time Signature Upper EUS [facility] [address] ??[place], [place] ??[address] RESULTS Patient Name: Richard Alejandre ? Procedure Date: 01/21/2021 1:08 PM ? Accou nt Number: [id number] Date of : 1970 ? Admit Type: Out patient Age: 50 ? Room: special procedure room #1 Note Status: Finalized ?Attending MD: Kristen Tamayo , Instrument Name: [id number] EUS Linear Procedure: ?Upper EUS Indications: ?Gastric deformity on endoscopy/Subepithelial tumor ?versus extrinsic comp ression Providers: ?Katheryn Mayo, YOUNG Referring : ? Nadira Boyd Medicines: ?Monitored Anesthesia Care Complications: ?No immediate complications. Procedure: ?Pre-Anesthesia Assessment: ?- Prior to the procedure, a History and Physical ?was performed, and patient medications and ?allergies were reviewed. The patient is competent. ?The risks and benefits of the procedure and the ?sedation options and risks were discussed with the ?patient. All questions were answered and informed ?consent was obtained. Patient identification and ?proposed procedure were verified by the physician ?in the procedure room. Mental Status Examination: ?alert and oriented. Airway Examination: normal ?oropharyngeal airway and neck mobility. Respiratory ?Examination: clear to auscultation. CV Examination: ?normal. Prophylactic Antibiotics: The patient does ?not require prophylactic antibiotics. Prior ?Anticoagulants: The patient has taken no previous ?anticoagulant or antiplatelet agents. ASA Grade ?Assessment: II - A patient with mild systemic ?disease. After reviewing the risks and benefits, ?the patient was deemed in satisfactory condition to ?undergo the procedure. The anesthesia plan was to ?use monitored anesthesia care (MAC). Immediately ?prior to administration of medications, the patient ?was re-assessed for adequacy to receive sedatives. ?The heart rate, respiratory rate, oxygen ?saturations, blood pressure, adequacy of pulmonary ?ventilation, and response to care were monitored ?throughout the procedure. The physical status of ?the patient was re-assessed after the procedure. ?- Immediately prior to administration of ?medications, the patient was re-assessed for ?adequacy to receive s edatives. ?- The heart rate, respiratory rate, oxygen ?saturations, blood pressure, adequacy of pulmonary ?ventilation, and response to care were monitored ?throughout the proced ure. ?- The physical status of the patient was ?re-assessed after the procedure. ?After obtaining informed consent, the endoscope was ?passed under direct vision. Throughout the ?procedure, the patient's blood pressure, pulse, and ?oxygen saturations were monitored continuously. The ?Endoscope was introduced through the mouth, and ?advanced to the second part of duodenum. The upper ?EUS was accomplished with ease. The patient ?tolerated the procedu re well. ? Findings: ? ENDOSCOPIC FINDING: : ? A medium-sized, submucosal, non-circumferential mass with no bleeding ? and no stigmata of recent bleeding was found in the g astric fundus. ? The ampulla and examined duodenum were normal. ? ENDOSONOGRAPHIC FINDING: : ? There was no sign of significant endosonographic abno rmality in the ? common bile duct. The maximum diameter of the duct wa s 2 mm. An ? unremarkable gallbladder, no ston es, no biliary sludge, ducts of normal ? caliber and ducts with regular contour were identifie d. ? An oval intramural (s ubepithelial) lesion was found in the fundus of the ? stomach at 45 cm from the incisors. The lesion was hy poechoic and ? heterogenous. Sonogra phically, the lesion appeared to originate from the ? muscularis propria (Layer 4). The lesion measured 21 mm (in maximum ? thickness). The lesion also measured 14 mm in diamete r. The outer ? endosonographic borders were well defined. Fine needle aspiration for ? cytology was performed. Color Doppler imaging was uti lized prior to ? needle puncture to confirm a lack of significant va scular structures ? within the needle path. Five passes were made with the 25 gauge needle ? using a transgastric approach. A stylet was used. A c ytologist was ? present and performed a preliminary cytologic examina tion. Final ? cytology results are pending. ? There was no sign of significant endosonographic abno rmality in the ? pancreatic head, pancreatic body, pancreatic tail, main pancreatic duct ? and ampulla. The pancreatic duct measured up to 2 mm in diameter. The ? pancreas was well visualized, no pathologic lymphadenopathy, no masses, ? no cysts, no calcifications, the pancreatic duct wa s well visualized ? from ampulla to tail, the pancreatic duct was thin in caliber, the ? pancreatic duct was regular in contour. ? Normal left adrenal gland and celiac axis. No worriso me mediastinal ? nodes. ? Liver was diffusely hyperechoic consistent with hepat ic steatosis ? Impression: ? - 2.1 cm gastric submucosal mass. FNA done and ?pending. Appearance suspicious for GIST tumor ?- Hepatic steatosis Recommendation: ? - Discharge patient to home ( ambulatory). ?- Resume regular diet today. ?- Await cytology resu lts. ?- Referral to surgeon if cytology confirms GIST ?tumor. ? Kristen Tamayo MD Kristen Tamayo, 01/21/2021 1:59:36 PM I was physically present for the entire viewing portion of t he exam. Kristen Tamayo Number of Addenda: 0 Note Initiated On: 01/21/2021 1:08 PM Total Procedure Duration: 0 hours 27 minutes 18 seconds Estimated Blood Loss: ? Estimated blood loss was minimal. Scope In: 1:20:48 PM Scope Out: 1:48:06 PM Specimen (Source) Anatomical Collection Method Collection Time Re ceived Time Location / / Volume Laterality 01/21/2021 1:08 PM CDT Nadira Boyd PROCEDURES Performing Organization Address City/State/ZIP Code Phon e Number RADIOLOGY RESULTS documented in this encounter Visit Diagnoses Not on filedocumented in this encounter Administered Medications Inactive Administered Medications - up to 3 most recent administrations Medication Order MAR Action Action Date Dose Rate Site flumazenil (ROMAZICON) injection 0.2 mg 0.2 mg, Intravenous, EVERY 1 MIN PRN, benzodiazepine r eversal, over sedation, Administer over 1 Minutes, Starting on T ue 01/21/21 at 1404, For 12 hours, Give over 15 seconds. If inadequate response after 45 seconds, may repeat up to a MAX total dose of 1 mg. Continue monitoring until discharge criteria are met for a minimum of 2 hours Irritant. Use with caution in patients on polo odiazepine therapy. lidocaine (LMX4) cream Topical, EVERY 1 HOUR PRN, pain, with VAD insertion, S tarting on 01/21/21 at 1311, Apply at least 30 minutes prior to VAD insertion in divided doses as needed for size of site for insertion. MAX Dose: 2.5 g (?? of 5 g tube) Do NOT give if patient has a history of allergy to any local anesthetic or any adrienne product. Do NOT use both lidocaine intradermal/subcu taneous injection and the lidocaine cream on the same site., Pre-procedure lidocaine 1 % 0.1-1 mL 0.1-1 mL, Other, EVERY 1 HOUR PRN, mild pain with VAD insertion, Starting on Wed01/21/21 at 1311, MAX dose 1 mL subcutane ous OR intradermal along the side of the vein in divided doses as needed for VAD insertion. Do NOT give if patient has a history of allergy to any local anesthet ic or any adrienne product. Do NOT use both lidocaine intradermal/subcutaneous injec tion and the lidocaine cream on the same site., Pre-procedure naloxone (NARCAN) injection 0.2 mg 0.2 mg, Intravenous, EVERY 2 MIN PRN, op ioid reversal, Starting on Wed01/21/21 at 1404, Administer intravenous route when available and notify provider when administered. For unintended sedation or respiratory depression if all of the below criteria are met: ~ respiratory rate LES S than or EQUAL to 8. ~SaO2 less than 92% and or/end-tidal CO2 is greater than 50. ~ the patient is receiving an opioid, has unintended sedations assessed as RASS (-3), and is cur rently not on mechanical ventilation. RASS scale moderate (-3) is movement or eye opening to voice but no eye contact. Patient Monitoring Once the patient has demonstrated a response to the naloxone, continue to monitor respiratory rate, depth, oxygen saturation and end-tidal CO2 (if available) every 15 mi nutes x 2, then every 30 minutes x 2, then every 1 hour x 1 after each naloxone dose. Consider tr ansfer to ICU if patient respiratory parameters have not improved after 4 nalox one doses. naloxone (NARCAN) injection 0.2 mg 0.2 mg, Intramuscular, EVERY 2 MIN PRN, opioid reversal, Starting on Wed01/21/21 at 1404, Administer intramuscular if an int ravenous route is not available and notify provider when administered. For unintend ed sedation or respiratory depression if all of the below criteria are met: ~ respiratory rate LESS than or EQUAL to 8. ~SaO2 less than 92% and or/end-tidal CO2 is greater th an 50. ~ the patient is receiving an opioid, has unintended sedations assessed as RASS (-3), and is currently not on mechanical ventilation. RASS scale moderate (-3) is movement or eye opening to voice but no eye contact. Patient Monitoring Once the patient has demonstrated a response to the naloxone, continue to m onitor respiratory rate, depth, oxygen saturation and end-tidal CO2 (if availab le) every 15 minutes x 2, then every 30 minutes x 2, then every 1 hour x 1 after each naloxone dose. Consider transfer to ICU if patient respiratory parameters have not improved after 4 naloxone doses. naloxone (NARCAN) injection 0.4 mg 0.4 mg, Intravenous, EVERY 2 MIN PRN, op ioid reversal, Starting on Wed01/21/21 at 1404, Administer intravenous route when available and notify provider when administered. For unintended sedation or respiratory depression if all of the below criteria are met: ~ respiratory rate LES S than or EQUAL to 8. ~ SaO2 less than 92% and or/end-tidal CO2 is greater than 50. ~ the patient is receiving an opioid, has unintended sedation assessed as RASS (-4 ) or (-5) and patient is currently not on mechanical ventilation. RASS scale (-4) is deep sedation with no response to voice but movement or eye opening to physical stimulation. R ASS scale (-5) is unarousable. Patient Monitoring Once the patient has demonstrated a response to the naloxone, continue to monitor respiratory rate, depth, oxygen saturation and end-tidal CO2 (if available) every 15 mi nutes x 2, then every 30 minutes x 2, then every 1 hour x 1 after each naloxone dose. Consider tr ansfer to ICU if patient respiratory parameters have not improved after 4 nalox one doses. naloxone (NARCAN) injection 0.4 mg 0.4 mg, Intramuscular, EVERY 2 MIN PRN, opioid reversal, Starting on Wed01/21/21 at 1404, Administer intramuscular if an int ravenous route is not available and notify provider when administered. For unintend ed sedation or respiratory depression if all of the below criteria are met: ~ res piratory rate LESS than or EQUAL to 8. ~ SaO2 less than 92% and or/end-tidal CO2 is greater alexander n 50. ~ the patient is receiving an opioid, has unintended sedation assessed as RASS (-4) or (-5) and patient is currently not on mechanical ventilation. RA SS scale (-4) is deep sedation with no response to voice but movement or eye opening to physical stimulation. RASS scale (-5) is unarousa ble. Patient Monitoring Once the patient has demonstrated a response to the nalox one, continue to monitor respiratory rate, depth, oxygen saturation and end-tidal CO2 (if availab le) every 15 minutes x 2, then every 30 minutes x 2, then every 1 hour x 1 after each naloxone dose. Consider transfer to ICU if patient respiratory parameters have not improved after 4 naloxone doses. ondansetron (ZOFRAN) injection 4 mg 4 mg, Intravenous, EVERY 6 HOURS PRN, nausea, vomiting , Administer over 2-5 Minutes, Starting on Wed01/21/21 at 1404, This is Step 1 of nausea and vomiting management. If nausea not resolved in 15 minutes, go t o Step 2 prochlorperazine (COMPAZINE). Irritant. ondansetron (ZOFRAN-ODT) ODT tab 4 mg 4 mg, Oral, EVERY 6 HOURS PRN, nausea, v omiting, Starting on Wed01/21/21 at 1404, This is Step 1 of nausea and vomiting management. If n ausea not resolved in 15 minutes, go to Step 2 prochlorperazine (COMPAZINE). Do not push through foil backing. Peel back foil and gently remove. Place on to ngue immediately. Administration with liquid unnecessary W ith dry hands, peel back foil backing and gently remove tablet. Do not push oral d isintegrating tablet through foil backing. Administer immediately on tongue and oral disintegrati ng tablet dissolves in seconds, then swallow with saliva. Liquid not required . sodium chloride (PF) 0.9% PF flush 3 mL 3 mL, Intracatheter, EVERY 8 HOURS, First dose on Wed01/21/21 at 1330, to lock peripheral IV dormant line, Pre-procedure sodium chloride (PF) 0.9% PF flush 3 mL 3 mL, Intracatheter, EVERY 1 MIN PRN, li ne flush, other, to ensure patency or to lock dormant line, Starting on Wed01/21/21 at 1311, Pr e-procedure documented in this encounter Active and Recently Administered Medications Times are shown in CDT. Scheduled Medication Order 01/19/2021 01/20/2021 01/21/2021 sodium chloride (PF) 0.9% PF flush 3 mL 1330 (Canceled Entry - Provider: Orders Generic Provider - Comment: Automatically canceled at discontinue of medication order) 3 mL, Intracatheter, EVERY 8 HOURS, Firs t dose on Wed01/21/21 at 1330, to lock peripheral IV dormant line, Pre-procedure PRN Medication Order 01/19/2021 01/20/2021 01/21/2021 flumazenil (ROMAZICON) injection 0.2 mg 0.2 mg, Intravenous, EVERY 1 MIN PRN, be nzodiazepine reversal, over sedation, Administer over 1 Minutes, Starting on Wed01/21/21 at 1404, For 12 hours, Give over 15 seconds. If inadequate response after 45 seconds, may repeat up to a MAX tota l dose of 1 mg. Continue monitoring until discharge criteria are met for a minimum of 2 hours Irritant. Use with caution in patients on benzodiazepine therapy. lidocaine (LMX4) cream Topical, EVERY 1 HOUR PRN, pain, with VA D insertion, Starting on Wed01/21/21 at 1311, Apply at least 30 minutes prior to VAD insertion in divided doses as needed for size of site for insertion. MAX Dose : 2.5 g (?? of 5 g tube) Do NOT give if patient has a history of allergy to any local anesthetic or any adrienne product. Do NOT use both lidocaine intradermal/subcutaneous injection and the lidocaine cream on the same site., Pre-procedure lidocaine 1 % 0.1-1 mL 0.1-1 mL, Other, EVERY 1 HOUR PRN, mild pain with VAD insertion, Starting on Wed01/21/21 at 1311, MAX dose 1 mL subcutaneous OR intradermal along the side of the vein in divided doses as needed for VAD insertion. Do NOT give if patient has a history of allergy to any local anesthetic or any adrienne product. Do NOT use both lidocaine intradermal/subcutaneous injection and the lidocaine cream on the same site., Pre-procedure naloxone (NARCAN) injection 0.2 mg 0.2 mg, Intravenous, EVERY 2 MIN PRN, op ioid reversal, Starting on Wed01/21/21 at 1404, Administer intravenous route when available and notify provider when administered. For unintended sedation or resp iratory depression if all of the below c riteria are met: ~ respiratory rate LESS than or EQUAL to 8. ~SaO2 less than 92% and or/end-tidal CO2 is greater than 50. ~ the patient is receiving an opioid, alamo s unintended sedations assessed as RASS (-3), and is currently not on mechanical ventilation. RASS scale moderate (-3) is movement or eye opening to voice but no eye contact. Patient Monitoring Once the patient has demonstrated a response to the naloxone, continue to monitor respiratory rate, depth, oxygen saturation and end-tidal CO2 (if available) every 15 minutes x 2, then every 30 minutes x 2, the n every 1 hour x 1 after each naloxone d ose. Consider transfer to ICU if patient respiratory parameters have not improved after 4 naloxone doses. naloxone (NARCAN) injection 0.2 mg 0.2 mg, Intramuscular, EVERY 2 MIN PRN, opioid reversal, Starting on Wed01/21/21 at 1404, Administer intramuscular if an intravenous route is not available and notify provider when administered. For uni ntended sedation or respiratory depressi on if all of the below criteria are met: ~ respiratory rate LESS than or EQUAL to 8. ~SaO2 less than 92% and or/end- tidal CO2 is greater than 50. ~ the patient is receiving an opioid, has unintended sed ations assessed as RASS (-3), and is currently not on mechanical ventilation. RASS scale moderate (-3) is movement or eye opening to voice but no eye contact. Pat ient Monitoring Once the patient has dem onstrated a response to the naloxone, continue to monitor respiratory rate, depth, oxygen saturation and end-tidal CO2 (if available) every 15 minutes x 2, then e very 30 minutes x 2, then every 1 hour x 1 after each naloxone dose. Consider transfer to ICU if patient respiratory parameters have not improved after 4 naloxone doses. naloxone (NARCAN) injection 0.4 mg 0.4 mg, Intravenous, EVERY 2 MIN PRN, op ioid reversal, Starting on Wed01/21/21 at 1404, Administer intravenous route when available and notify provider when administered. For unintended sedation or resp iratory depression if all of the below c riteria are met: ~ respiratory rate LESS than or EQUAL to 8. ~ SaO2 less than 92% and or/end-tidal CO2 is greater than 50. ~ the patient is receiving an opioid, h as unintended sedation assessed as RASS (-4) or (-5) and patient is currently not on mechanical ventilation. RASS scale (-4) is deep sedation with no response to voice but movement or eye opening to phy sical stimulation. RASS scale (-5) is un arousable. Patient Monitoring Once the patient has demonstrated a response to the naloxone, continue to monitor respiratory rate, depth, oxygen saturation and end -tidal CO2 (if available) every 15 minut es x 2, then every 30 minutes x 2, then every 1 hour x 1 after each naloxone dose. Consider transfer to ICU if patient respiratory parameters have not improved after 4 naloxone doses. naloxone (NARCAN) injection 0.4 mg 0.4 mg, Intramuscular, EVERY 2 MIN PRN, opioid reversal, Starting on Wed01/21/21 at 1404, Administer intramuscular if an intravenous route is not available and notify provider when administered. For uni ntended sedation or respiratory depressi on if all of the below criteria are met: ~ respiratory rate LESS than or EQUAL to 8. ~ SaO2 less than 92% and or/end- tidal CO2 is greater than 50. ~ the patient i s receiving an opioid, has unintended se dation assessed as RASS (-4) or (-5) and patient is currently not on mechanical ventilation. RASS scale (-4) is deep sedation with no response to voice but moveme nt or eye opening to physical stimulatio n. RASS scale (-5) is unarousable. Patient Monitoring Once the patient has demonstrated a response to the naloxone, continue to monitor respiratory rate, depth, o xygen saturation and end-tidal CO2 (if a vailable) every 15 minutes x 2, then every 30 minutes x 2, then every 1 hour x 1 after each naloxone dose. Consider transfer to ICU if patient respiratory parameters have not improved after 4 naloxone doses. ondansetron (ZOFRAN) injection 4 mg(Linked Group 1) 4 mg, Intravenous, EVERY 6 HOURS PRN, na usea, vomiting, Administer over 2-5 Minutes, Starting on Wed01/21/21 at 1404, This is Step 1 of nausea and vomiting management. If nausea not resolved in 15 minut es, go to Step 2 prochlorperazine (COMPAZINE). Irritant. ondansetron (ZOFRAN-ODT) ODT tab 4 mg(Linked Group 1) 4 mg, Oral, EVERY 6 HOURS PRN, nausea, v omiting, Starting on Wed01/21/21 at 1404, This is Step 1 of nausea and vomiting management. If nausea not resolved in 15 minutes, go to Step 2 prochlorperazine (C OMPAZINE). Do not push through foil back ing. Peel back foil and gently remove. Place on tongue immediately. Administration with liquid unnecessary With dry hands, peel back foil backing and gently remov e tablet. Do not push oral disintegratin g tablet through foil backing. Administer immediately on tongue and oral disintegrating tablet dissolves in seconds, then swallow with saliva. Liquid not required. sodium chloride (PF) 0.9% PF flush 3 mL 3 mL, Intracatheter, EVERY 1 MIN PRN, li ne flush, other, to ensure patency or to lock dormant line, Starting on Wed01/21/21 at 1311, Pre-procedure Linked Groups Order Group 1: ondansetron (ZOFRAN-ODT) ODT tab 4 mgJump to med 4 mg, Oral, EVERY 6 HOURS PRN, nausea, v omiting, Starting on Wed01/21/21 at 1404
This is Step 1 of nausea and vomiting management. If nausea not resolved in 15 minutes, go to Step 2 prochlorperazine (COMPAZINE). Do not push through foil backing. Peel back foil and gently remove. Place on tongue immediately. Administration with liquid unnecessary With dry hands, pee l back foil backing and gently remove ta blet. Do not push oral disintegrating tablet through foil backing. Administer immediately on tongue and oral disintegrating tablet dissolves in seconds, then swallow with saliva. Liquid not required.
Or ondansetron (ZOFRAN) injection 4 mgJump to med 4 mg, Intravenous, EVERY 6 HOURS PRN, na usea, vomiting, Administer over 2-5 Minutes, Starting on Wed01/21/21 at 1404
This is Step 1 of nausea and vomiting management. If naus ea not resolved in 15 minutes, go to Steven p 2 prochlorperazine (COMPAZINE). Irritant.
documented in this encounter Care Teams Road Conductor Relationship Specialty Start Date End Date [facility] P[facility] - General 01/15/[address] [place] [address] documented as of this encounter
--- OUTSIDE RECORDS SUMMARY | 2022-04-21 06:33 | XMS_ITS | Encounter Summary ---
:1970 Author Organization [facility] Address [address] [place] [address]. [place] [address] Care Team Providers Name Role Phone [facility], [facility] Primary Care Provider [phone] Reason for Visit Auth/Cert Specialty Diagnoses / Procedures Referred By Contact Refer red To Contact Gastroenterology Diagnoses Abnormal CT of the abdomen Abnormal CT of the abdomen [R93.5] Endoscopy Procedures HC ENDOSCOPIC US EXAM, ESOPH HC UPPR GI ENDOSCOPY W/US FN BX HC UGI ENDOSCOPY W EUC W FNA/BIOPSY HC UGI ENDOSCOPY W EUS ESOPHAGOGASTRODUODENOSCOPY, WITH ENDOSCOPIC US [address] [place] [phone] Phone: Referral ID Status Reason Start Date Expiration Date Visits Requ ested Visits Authorized [id number] 1 1 Encounter Details Date Type Department Care Team Description 01/21/2021 Surgery [facility] MD Anastasiya OPY, WITH FINE NEEDLE [address] NU GASTROENTEROLOGY ASPIRATION BIOPSY, WITH NU BECK [phone] [address] [facility] ENDOSCOPIC ULTRASOUND [phone] [address] GUIDANCE [phone] (Wo rk) Surgery Details Date/Time Status Location OR Service Patient Class Case Case Trauma Class Type Case? 01/21/21 1:00 Posted GI GI SP Gastroenterology Outpatient PM 01 Panel 1 Procedure [facility]RB Anes Op Region Wound Class Commen ts ESOPHAGOGASTRODUODENOSCOPY, WITH N/A MAC Esophagus II- Clean Contaminated 25C FINE NEEDLE ASPIRATION BIOPSY, WITH ENDOSCOPIC ULTRASOUND GUIDANCE Surgeon Surgeon Role Service Panel Kristen Tamayo MD Primary Gastroenterology 1 documented in this encounter Social History Tobacco [...] Sign Reading Time Taken Comments Blood Pressure 136/90 01/21/2021 12:27 PM CDT Pulse 64 01/21/2021 12:27 PM CDT Temperature 36.2 ??C (97.2 ??F) 01/21/2021 12:27 PM CDT Respiratory Rate 18 01/21/2021 12:27 PM CDT Oxygen Saturation 99% 01/21/2021 12:27 PM CDT Inhaled Oxygen Concentration - - [...] Component Value Ref Test Analysis Performed At [facility] Range Method Time Signature Final Specimen A 01/27/2021 [facility] Electron ically Diagnosis 3:04 PM LABORATORY signed by Interpretation: Consistent with gastrointestinal stromal tumor (GIST) (Please see microscopic description) CDT Nahomi Dougherty MD on 01/27/2021 at 3:04 PM Atypical Adequacy: Satisfactory for evaluation Rapid Onsite FNA Performance: 01/27/2021 [facility] Evaluation Fine needle aspiration was n ot performed by [facility] staff. 3:04 PM LABORATORY CDT Aspirate [...] gastric submucosal mass, Fine Needle Aspirate: 01/27/2021 [facility] Description Received are 2 fixed slides, processed [...] PM LABORATORY CDT Performing The technical 01/27/2021 [facility] Labs component of this 3:04 PM LABORATORY testing was CDT completed at [facility] Specimen (Source) Anatomical Collection Method Collection Time Re ceived Time Location / / Volume Laterality Fine Needle TOPOGRAPHY UNKNOWN 01/21/2021 1:23 2020 7:46 Aspiration / Unknown PM CDT AM CDT Kristen GUARDADO - [place] MICHELLE Performing Organization Address City/State/ZIP Code Phon [place] [address] Care Lab [address] [facility] (1st floor, no room number) [facility] [address] [address] , [facility] UPPER EUS (01/21/2021 1:08 PM CDT) [facility] Method Time Signature Upper EUS [facility] [address] ??[place] ??[id number] RESULTS Patient Name: Richard Alejandre ? Procedure Date: 01/21/2021 1:08 PM ? Accou nt Number: [id number] Date of : 1970 ? Admit Type: Out patient Age: 50 ? Room: special procedure room #1 Note Status: Finalized ?Attending MD: Kristen Tamayo , Instrument Name: 430 [id number] EUS Linear Procedure: ?Upper EUS Indications: ?Gastric deformity on endoscopy/Subepithelial tumor ?versus extrinsic comp ression Providers: ?Kristen Tamayo, Katheryn Hollingsworth, YOUNG Referring MD: ? Nadira Boyd Medicines: ?Monitored Anesthesia Care [...] RESULTS documented in this encounter Visit Diagnoses Diagnosis Abnormal CT of the abdomen Nonspecific (abnormal) findings on radio logical and other examination of abdominal area, including retroperitoneum documented in this encounter Administered Medications Inactive Administered Medications - up to 3 most recent administrations Medication Order MAR Action Action Date Dose Rate Site flumazenil (ROMAZICON) injection 0.2 mg 0.2 mg, Intravenous, EVERY 1 MIN PRN, benzodiazepine r eversal, over sedation, Administer over 1 Minutes, Starting on T 01/21/21 at 1404, For 12 hours, Give [...] pain, with VAD insertion, S tarting on Wed01/21/21 at 1311, Apply at least [...] Irritant.
documented in this encounter Care Teams Shower Room Attendant Relationship Specialty Start Date End Date [facility], [facility] PCP - General 01/15/21 [address] [place] [address] documented as of this encounter
--- OUTSIDE RECORDS SUMMARY | 2022-04-21 06:33 | XMS_ITS | Clinical Summary ---
:1970 Author Organization [facility] Address [address] [place] [address] Care Team Providers Name Role Phone [facility], [facility] [place] Primary Care Provider [phone] Allergies No known active allergies Medications No known medications Family History Medical History Relation Comments Coronary Artery Disease Father Diabetes Father Relation Status Comments Father Mother Alive Social History Tobacco Use Types Packs/Day Years Used Date Smoking Tobacco: Former Smokeless Tobacco: Never Alcohol Use Standard Drinks/Week Comments Yes 0 (1 standard drink = 0.6 oz pure alcoho l) 6/week Sex Assigned at Date Recorded Not on file Last Filed Vital Signs Vital Sign Reading [...] Mass Index 26.5 01/21/2021 12:27 PM CDT Plan of Treatment Health Maintenance Due Date Last Done Comments ADVANCE CARE PLANNING 1970 ANNUAL REVIEW OF HM ORDERS 1968 CT COLONOGRAPHY 1968 FIT-DNA (Cologuard) 1970 FIT 1970 FLEX SIG 1970 HEPATITIS B IMMUNIZATION (1 1968 of 3 - 3-dose series) YEARLY PREVENTIVE VISIT 1970 COVID-19 Vaccine (#1) 05/15/1969 COLONOSCOPY 1978 COLORECTAL CANCER SCREENING 1978 HIV SCREENING 11/13/1983 HEPATITIS C SCREENING 1986 LIPID 11/13/2003 LUNG CANCER SCREENING 2018 ZOSTER IMMUNIZATION (1 of 2) 2018 PHQ-2 (once per calendar 05/10/2021 year) INFLUENZA VACCINE (#1) 2022 DTAP/TDAP/TD IMMUNIZATION (3 05/30/2029 05/30/2019, - Td or Tdap) 01/16/2009 IPV IMMUNIZATION Aged Out No longer eligi ble based on patient's age to complete this to pic MENINGITIS IMMUNIZATION Aged Out No longe r eligible based on patient's age to complete this to pic Pneumococcal Vaccine: Aged Out No longer eligible based Pediatrics (0 to 5 Years) and on patient's age to At-Risk Patients (6 to 64 comple te this topic Years) Insurance Payer Benefit Plan / Subscriber ID Effective Dates Phone Addre ss Type Group [place] [id number] 2017-[facility] [phone] [address] [address] [address] [place] [address] [phone] michel (Home) [address] [address] Care Teams Strong Nitric Operator Relationship Specialty Start Date End Date Clinic, [facility] PCP - General 01/15/21 [address] [place], [place] [id number]
--- OUTSIDE RECORDS SUMMARY | 2022-04-21 06:33 | XMS_ITS | Encounter Summary ---
:1970 Author Organization [facility] Address [address] [place] [address] Care Team Providers Name Role Phone Unavailable Primary Care Provider Unavailable Encounter Details Date Type Department Care Team Description 05/19/2021 Admin Visit Department of Family Medicine, [address] [address] [facility] [phone] Social History Tobacco Use Types Packs/Day Years Used Date Smoking Tobacco: Never Assessed Sex Assigned at Date Recorded Not on file documented as of this encounter Plan of Treatment Not on filedocumented as of this encounter Visit Diagnoses Not on filedocumented in this encounter Additional Health Concerns Infection Onset Date Last Indicated Resolved Time COVID19 Pending 05/19/2021 05/19/2021 05/20/2021 8:52 AM CODING CONSULTANT documented as of this encounter
--- OUTSIDE RECORDS SUMMARY | 2022-04-21 06:34 | XMS_ITS | Encounter Summary ---
:1970 Author Organization [facility] Address [facility] [place] [address] Care Team Providers Name Role Phone Unavailable Primary Care Provider Unavailable Encounter Details Date Type Department Care Team Description 01/14/2021 Orders Only [facility] Kristen Tamayo for [place] Endoscopy MD Anastasiya screening for other [address] [facility] [place] [address] [address] [facility] [phone] [place] [address] (Wo rk) Social History Tobacco Use Types Packs/Day Years Used Date Smoking Tobacco: Never Assessed Sex Assigned at Date Recorded Not on file documented as of this encounter Plan of Treatment Not on filedocumented as of this encounter Results Asymptomatic COVID-19 Virus (Coronavirus) by PCR Nose (01/17/2021 1:26 PM CDT) Analysis Performed At Patho logist Time Signature SARS CoV2 PCR Negative Negative 01/18/2021 [facility] 10:05 PM CDT LABORATORY Comment: NEGATIVE: SARS-CoV-2 (COVID-19) RNA not detected, presumed negative. Specimen Anatomical Collection Method Collection Time Receive d Time (Source) Location / / Volume Laterality Swab NASAL STRUCTURE / Non-blood 01/17/2021 1:26 PM 01/08 1:27 Unknown Collection / CDT PM CDT Unknown Narrative [facility] LAB[facility] - 01/18/2021 10:05 PM CDT Testing was performed using the Aptima SARS-CoV-2 Assay on the K[employer] Instrument System. Additional in formation about this Emergency Use Authorization (EUA) assay can be found via the Lab Guide. This test should be ordered for t he detection of SARS-CoV-2 in individuals who meet SARS-CoV-2 clinical and/or epidemiological criteria. Test performance is unknown in asymptomatic patients. This test is for in vitro diagnostic use unde r the FDA EUA for laboratories certified under CLIA to per form high complexity testing. This test has not been FDA cleared or ap proved. A negative result does not rule out the presence of PCR in hibitors in the specimen or target RNA in concentration below the li brandi of detection for the assay. The possibility of a false negati ve should be considered if the patient's recent exposure or clinica l presentation suggests COVID-19. This test was validated by the [facility]. This lab oratory is certified under the Clinical Laboratory Improvement Amen dments of 1987 (CLIA-88) as qualified to perform high complexity lab oratory testing. Kristen Tamayo MD LAB - MICRO GENERAL ORDERAB LES Performing Organization Address City/State/ZIP Code Phon e Number [facility] LABORATORY [facility] [place] [address] Diag. Lab [address] [facility], Room [address]297 [facility] Infectious [place], [place] [phone] Diseases Diagnostic [id number], [facility] Lab (IDDL) [address] [facility], Room D297 documented in this encounter Visit Diagnoses Diagnosis Encounter for screening for other viral diseases documented in this encounter
--- OUTSIDE RECORDS SUMMARY | 2022-04-21 06:34 | XMS_ITS | Encounter Summary ---
:1970 Author Organization [address] [address] Care Team Providers Name Role Phone [facility]acho, [facility] [place] Primary Care Provider [phone] Encounter Details Date Type Department Care Team Description 01/17/2021 [facility] beckyer for screening for Hospital other viral diseases [address] [place] [address] Social History Tobacco Use Types Packs/Day Years [...] Name Priority Date/Time Associated Diagnosis Comme nts COVID-19 VIRUS Routine 01/17/2021 1:26 PM Encounter for Result s for this (CORONAVIRUS) BY CDT screening for other proc edure are in PCR viral diseases the results section. documented in this encounter Results Asymptomatic COVID-19 Virus (Coronavirus) [...] using the Aptima SARS-CoV-2 Assay on the Gist Instrument System. Additional in formation about this [...] COVID-19. This test was validated by the [facility] Infectious Diseases Diagnostic Laboratory. This lab oratory is certified under the Clinical Laboratory Improvement Amen dments of 1987 (CLIA-88) as qualified to perform high complexity lab oratory testing. Kristen Tamayo MD LAB - MICRO GENERAL ORDERAB LES Performing Organization Address City/State/ZIP Code Phon e Number [facility]ORY [facility] [place] [place] [address] Diag. Lab [address] [facility], Room [address]297 [facility] LABORATORY [facility] Infectious [place], [place] [phone] Diseases Diagnostic [phone] Lab (IDDL) [address] [facility], Room D297 documented in this encounter Visit Diagnoses Diagnosis Encounter for screening for other viral diseases documented in this encounter Care Teams Software Configuration Specialist Relationship Specialty Start Date End Date Aldo Flor PCP - General 01/15/[address] [place] [address] documented as of this encounter
[2022-04-21 06:59] VITALS: TEMP 36.1
[2022-04-21 07:01] VITALS: BP 113/81; PULSE 80; RESP 18; TEMP 36.1; O2SAT 98
== END 2022-04-21 08:03 ==
LOC: US 06:31
PROVIDERS: PCP Physician Assistant Medical; Visit Provider Family Medicine
DX: M77.02 Medial epicondylitis, left elbow (principal)
CPT/HCPCS: 24357; 76942

== ENCOUNTER 2022-12-31 14:30 | Outpatient (RCR) | payer BC, SELFPAY | END 2023-04-02 14:32 | disposition home or self-care (01) | PROVIDERS: PCP Physician Assistant Medical; Visit Provider Podiatrist | DX: M79.671 Pain in right foot (principal); G89.29 Other chronic pain; M65.28 Calcific tendinitis, other site; Z51.89 Encounter for other specified aftercare | CPT/HCPCS: 97033; 97110; 97162 ==

== ENCOUNTER 2023-03-29 11:57 | Day surgery (SDC) | payer BC, SELFPAY ==
[2023-03-29] VITALS (13 sets, daily range): BP systolic 132–164; BP diastolic 83–112; PULSE 54–99; RESP 15–18; TEMP 36–36.6; O2SAT 95–99; BMI 29.4
--- OUTSIDE RECORDS SUMMARY | 2023-03-29 12:01 | XMS_ITS | Continuity of Care Document ---
Author Name Unknown Organization [facility] Address [address] [place] [address] Phone Care Team Providers Care Convenience Store Manager Name Role Phone Rudy Flowers Unavailable Unavaila ble Allergies, Adverse Reactions, Alerts Substance Reaction Status Criticality No Known Allergies Active No Inform ation Medications Medication Instructions Dosage Effective Dates (start - stop) Status Comments No Drug Therapy Prescribed Procedures Procedure Date Office/Outpatient Visit,[place], [facility] 2016 Office/Outpatient Visit,[facility], [facility] 2011 Advance Directives Directive Yes / No Effective Date File Name No Information Encounters Encounter Description Practice Location Reason(s) For Visit Diagnoses Date Provider Providers Copied on Encounter [facility], [address], [place], [place], [id number], tel:[phone] No Information Khoa Grant. [address], [place], [facility], [place]. tel:[phone] Office/Outpa tient Visit,[facility], [address], [place], [place], [id number], tel:[phone] [facility] - [place] Spinal stenosis, cervical regionOther spondylosis, cervical regionRadicu lopathy, cervical region Khoa Grant. [facility], [address] [place] [address] [address], [place], [facility], . tel:[phone] Referring Provider: Nadira Boyd, [facility] [address], [place], [address]. tel:[phone] Office/Outpa tient Visit,Est, Mod [facility], [address] [address], [place], [address], [place] tel:[phone] [facility] - [place] No Information 2 Tacho Castaneda. [facility], [address], [address], [place], [place], [id number], [place]. tel:[phone] Family History Family Member Type Diagnosis Age At Onset No Information Payers Payer name Insurance type Covered libertarian ID Authorrenaldo katz(s) BCBS [id number] CCS/TPA BL [id number] Social History Type Description Quantity Date Captured Comments Sex Male Smoking Status No Information Chief Complaint And Reason For Visit No Information Reason For Referral Reason For Referral No Information History Of Present Illness Encounter Date Complaint History Of Prese nt Illness No Information Functional Status Date Functional Assessmen t No Information Medications Administered Medication Instructions Dosage Effective Dates (start - stop) Status Comments No Drug Therapy Prescribed Instructions Date Instruction Additional Infor mation No Information Assessments Type Assessment Date No Information Patient Care Teams Name Effective Dates (start - stop) Status Members No Information
--- NOTE | 2023-03-29 12:15 | CRLHL7_ITS ---
For Patients: As a result of the Cures Act, medical imaging exams and procedure reports are released immediately into your electronic medical record. You may view this report before your referring provider. If you have questions, please contact your health care provider. INDICATION: Fluoroscopy for ostectomy of calcaneus TECHNIQUE: 10 seconds of fluoroscopy was provided with no radiologist in attendance. 3 views right COMPARISON: None FINDINGS: Bone: No side markers are present on submitted images. Fluoroscopic images demonstrate placement of 2 screw tracks into the posterior calcaneus. Dictated by Rogerio Stallings MD @ 03/30/2023 2:00:14 PM Dictated by: Rogerio Stallings MD @ 03/30/2023 14:00:20 (Electronically Signed)
[2023-03-29] MEDS: LACTATED RINGERS 1000 ML 1,000 ML 100 ML IV (12:25)
[2023-03-29] MEDS: SODIUM CHLORIDE 0.9 % (FLUSH) 10 ML SYRINGE IVF (12:25)
[2023-03-29] MEDS: MIDAZOLAM HCL 1 MG/ML inj IVP (12:35)
[2023-03-29] MEDS: fentaNYL 100 MCG/2 ML inj IVP (12:35)
--- NOTE | 2023-03-29 12:49 | SUR.PREOP ---
TIME?OUT:?1235 PT/Светлана CANCINO RN/Urszula PALACIOS MDA?VERIFICATION?OF?SURGICAL?SITE,?PROCEDURE,?AND?CONSENT OBTAINED?PRIOR?TO?INVASIVE?PROCEDURE.
--- NOTE | 2023-03-29 13:26 | SUR.OPER ---
PATIENT QUESTIONS ANSWERED SATISFACTORILY PREOPERATIVELY.? PATIENT BROUGHT TO OR #1 PER CART.? Patient positioned prone on OR #1 bed after being intubated supine on the cart.? The perioperative?team supported arms bilaterally on arm boards.? Final approval of positioning by surgeon
--- NOTE | 2023-03-29 14:17 | W.ANESCHARGE ---
Anesthesia Charges Start Date/Time Anesthesia Start Date: 03/29/23 Anesthesia Start Time: 12:48 Stop Date/Time Anesthesia Stop Date: 03/29/23 Anesthesia Stop Time: 14:22
--- NOTE | 2023-03-29 14:43 | W.PM.NB ---
Nerve Block Nerve Block Time Seen by Provider: 12:36 Date Seen: 03/29/23 Type of block requested by surgeon for post-operative analgesia: popliteal Side: right Time out performed: Yes Verification of patient name: Yes Verification of date of : Yes Site marking: site marked Name of person performing procedure: Tony Continuous monitoring Was continuous monitoring of O2 sat, B/P, awake overnight monitor, recorded every 15 minutes?: Yes Procedure Checklist: sterile prep, needles and gloves Ultrasound guided. Images saved: Yes Medications given in 5ml increments after negative aspiration: Ropivicaine %: 0.5 mL: 20 Needle gauge: 22 Patient tolerated procedure well: Yes Additional comments: Needle noted adjacent to nerve Block Charges Block Charge (with Pro Fee): Sciatic Nerve Use of Ultrasound Machine for Block: Yes- US Guidance/pain block
--- NOTE | 2023-03-29 14:43 | PM.PROC ---
Procedure Note Date Seen: 03/29/23 Date of procedure: 03/29/23 Will [facility] bill your pro fee for this procedure?: No Pre-op diagnosis: Calcified Achilles tendinitis, Brayan's deformity and bone spur right Post-op diagnosis: same Procedure: Calcaneal ostectomy right Procedure Description: Hemostasis: Thigh tourniquet at 250 mm Hg Materials: [employer] SpeedBridge kit x1 Complications: Apparent Indication for surgery: Patient has elected to have removal of the painful bone spur firs right calcaneus. Reviewed the procedure, recovery, expectations potential complications. These include but are not limited to: Poor wound healing, infection, continued pain, potential need for future surgery, deep venous thrombosis, pulmonary embolism possible . All questions answered written consent is obtained. Site marked. Procedure in detail: Patient was brought the operating room placed under general anesthesia. He was then rolled into a prone position on the operating table. Was padded appropriately. He had a preoperative popliteal block by Anesthesia. He was then prepped and draped in sterile fashion. Standard time-out protocol followed. The right limb was exsanguinated the tourniquet inflated. Linear incisions made over the posterior heel through skin subcutaneous tissues. Paratenon was identified and incised. Pig Machine Supervisor reflected away from the Achilles tendon working distally to its insertion. Lateral border of the Achilles insertion was incised in the tendon was reflected away from the insertion working medially. Large bony spur was identified and removed with a rongeur. The enlarged superior tubercle was removed with a sagittal saw. Posterior aspect of the calcaneus was then remodeled with a power rasp. Wound was thoroughly irrigated normal sterile saline. C-arm confirmed appropriate resection posterior heel prominence. 4.475 SwiveLock anchor placed into the calcaneus on the medial and lateral aspect was superior portion the calcaneus. FiberTape passed through the Achilles tendon from each anchor. Suture was then tied down tightly increasing the Achilles tendon back to the calcaneus. 2 additional drill holes made distal the posterior calcaneus. One suture from each anchor was brought together then passed through the SwiveLock and inserted into the medial bone tunnel. This tension the FiberTape down onto the Achilles at the insertion. FiberTape from each anchor was then passed through the SwiveLock and the anchor placed in the lateral bone dome anchor in the tendon in place. Wound was thoroughly irrigated normal sterile saline.. Tendon repaired with 4-0 Vicryl. Subcutaneous tissues reapproximated with 4-0 Monocryl and skin closed with 4-0 Prolene. Sterile dressing was applied. Tourniquet was released and normal capillary fill time returned to all digits. A well-padded [id number] plaster splint was placed with the foot in gravity dorsiflexion. Patient was transferred from OR to PACU vital signs stable and vascular status intact to the right foot. He will be discharged per Anesthesia. He is given both written and verbal postop instructions. He is given oxycodone for pain. He will start aspirin therapy tomorrow. He is nonweightbearing. Anesthesia: GETA and regional Surgeon: Stiven Padilla DPM FACFAS Estimated blood loss (mL): 1 Condition: stable Disposition: PACU
== END 2023-03-29 15:41 | disposition home or self-care (01) ==
PROVIDERS: PCP Physician Assistant Medical; Visit Provider Podiatrist
PROC: (CPT 28300; principal; 2023-03-29 13:15)
DX: M65.271 Calcific tendinitis, right ankle and foot (principal); M79.671 Pain in right foot; G89.18 Other acute postprocedural pain
CPT/HCPCS: 28118; 01480; 64445; 73650; 76942; A4580; C1713; J0330; J1100; J2250; J2405; J2704; J2710; J2795; J3010; J7120

== ENCOUNTER 2023-08-06 16:45 | Outpatient (RCR) | payer OTHER, SELFPAY | END 2023-09-02 10:38 | disposition home or self-care (01) | PROVIDERS: PCP Physician Assistant Medical; Visit Provider Podiatrist | DX: M65.28 Calcific tendinitis, other site (principal); M77.31 Calcaneal spur, right foot; R26.9 Unspecified abnormalities of gait and mobility; Z74.09 Other reduced mobility; R29.898 Other symptoms and signs involving the musculoskeletal system; Z51.89 Encounter for other specified aftercare | CPT/HCPCS: 97110; 97116; 97140; 97161 ==